=== PATIENT | female | born 1950 | race Caucasian/White ===

== ENCOUNTER → 2019-04-20 | Outpatient (CLI) | payer MEDICARE, OTHER ==
[~2019-04-20] MED LIST: ZOLPIDEM 5 MG TABLET. PO ONE
--- NOTE | 2019-04-21 08:59 | SLEEP ---
DATE OF STUDY: 04/20/2019 SLEEP STUDY ATTENDING PHYSICIAN: Ashleigh Hutchinson MD The patient is 68 years old, who weighs 190 pounds with a BMI of 37. The patient's [place] score was 7. The patient underwent a sleep study performed at [facility]. This was a diagnostic study. During the night study, the patient spent 455 minutes in bed and slept for 329 minutes with a sleep efficiency of 72%. Sleep latency was 58 minutes with an absent REM sleep. Overall, sleep architecture showed increased stage 1 and stage 2 sleep, normal slow wave and absent REM sleep. During the night study, the patient had 83 obstructive apneas, 9 mixed apneas, no central apneas, and 51 hypopneas. The patient's apnea-hypopnea index was 26 per hour with a supine index of 24 per hour and absent REM AHI due to lack of REM sleep. EKG monitoring revealed normal sinus rhythm, average heart rate 81 beats per minute, no sustained arrhythmias observed. Nocturnal oximetry study revealed a mean oxygen saturation of 92% with the lowest of 85%. A 76% of time oxygen saturation remained between 80% and 89%. PLMs were seen at an index of 82 per hour and 10 per hour caused EEG arousals. The patient did meet the criteria for CPAP initiation, but that was during the latter half of the study, as a result there was not enough time to initiate CPAP. IMPRESSION: 1. Moderate sleep apnea-hypopnea syndrome at an AHI of 26 per hour. Absence of REM sleep can underestimate the severity of sleep apnea. 2. Nocturnal hypoxia, suspect secondary to combination of sleep apnea and hypoventilation. 3. Severe periodic limb movements. RECOMMENDATIONS: 1. The patient should return to the Sleep Lab for CPAP titration study. 2. Once optimum CPAP pressure is achieved, then follow up in 4-6 weeks to assess compliance with CPAP and to document clinical improvement. 3. Weight loss to the ideal body weight is recommended. 4. Avoid [employer] depressants. 5. Cautioned regarding driving until symptoms of sleep apnea have resolved with the use of CPAP. 6. The patient should also be further evaluated for symptoms of restless legs during the day and if present, it can be treated with dopaminergic agonist agents. BRAVO HILLS MD DR: SOILA/natasha JOB#: [id number] / [id number]
== END | disposition home or self-care (01) ==
LOC: SLPLAB 18:49
PROVIDERS: ATTEND Internal Medicine
DX: G47.33 Obstructive sleep apnea (adult) (pediatric) (principal); G47.34 Idiopathic sleep related nonobstructive alveolar hypoventilation; G47.61 Periodic limb movement disorder; J44.9 Chronic obstructive pulmonary disease, unspecified; I10 Essential (primary) hypertension; Z86.73 Personal history of transient ischemic attack (TIA), and cerebral infarction without residual deficits
CPT/HCPCS: 95810

== ENCOUNTER → 2019-05-19 | Outpatient (CLI) | payer MEDICARE, OTHER ==
--- NOTE | 2019-05-20 12:46 | SLEEP ---
DATE OF STUDY: 05/19/2019 SLEEP STUDY PRIMARY CARE PHYSICIAN: Ashleigh Hutchinson MD The patient is a 68-year-old who weighs 190 pounds with a BMI of 37. The patient had sleep study previously and was found to have moderate [place]AN[place] at an AHI of 26 per hour along with nocturnal hypoxia and severe PLMS. She was referred back for CPAP titration study. During the night study, the patient spent 471 minutes in bed and slept for 437 minutes with a sleep efficiency of 93%. Sleep latency was 7 minutes with a REM latency of 135 minutes. Sleep architecture showed increased stage 1 and stage 2 sleep, normal slow wave and normal REM sleep. EKG monitoring revealed normal sinus rhythm, average heart rate was 83 beats per minute. PLMS were seen at index of 34 per hour and 2 per hour caused EEG arousals. The patient was started on CPAP at 5 cm water and titrated up to 12 cm water. At the final pressure, the patient slept for 52 minutes. The patient had supine as well as REM sleep. The patient's AHI was reduced to 2 per hour and oxygen saturation remained above 89%. The patient used small size full face mask. IMPRESSION: 1. Moderate sleep apnea diagnosed by previous sleep study. 2. Moderate periodic limb movements. RECOMMENDATIONS: 1. CPAP at 12 cm water completely eliminated the patient's sleep apnea and should be used on a nightly basis. 2. Follow up in 4-6 weeks to assess compliance with CPAP and to document clinical improvement. 3. Weight loss is advised. 4. Avoid [employer] depressants. 5. Cautioned regarding driving until symptoms of sleep apnea resolve with the use of CPAP. BRAVO HILLS MD DR: SOILA/natasha JOB#: [id number] / [id number]
== END | disposition home or self-care (01) ==
LOC: RT 18:51
PROVIDERS: ATTEND Internal Medicine
DX: G47.33 Obstructive sleep apnea (adult) (pediatric) (principal); G47.61 Periodic limb movement disorder
CPT/HCPCS: 95811